=== PATIENT | male | born 1975 | race Caucasian/White ===

== ENCOUNTER 2024-06-15 16:33 | Emergency (ER) | payer MEDICAID, SELFPAY ==
[2024-06-15 16:36] VITALS: BMI 40.1
[2024-06-15 16:54] VITALS: BP 89/74; PULSE 118; RESP 18; TEMP 36.7; O2SAT 95
--- NOTE | 2024-06-15 17:01 | XR_ITS ---
Examination: CT abdomen and pelvis without contrast. Coronal 3-D reconstructions. Sagittal 2-D reconstructions. Date and time of exam:June 15, 2024 6:21 PM Comparison December 06, 2023 INDICATIONS: Abdominal pain nausea vomiting and diarrhea beginning 2 days ago CTDI: vol (mGy): 12.68 DLP: (mGycm): 861 Technique: Axial images of the abdomen have been obtained, 3 mm slice thickness Intravenous contrast material has not been administered. Low dose protocols were performed. One or more of the following dose reduction techniques were used; automated exposure control, adjustment of the mA and/or KV according to patient size, use of iterative reconstruction technique. Findings: Bibasilar pneumonia No focal liver or splenic lesions No pancreatic mass 10 mm left renal calculus, no hydronephrosis Aorta normal size Fluid distended colon Normal appendix No bowel obstruction No diverticulitis Normal seminal vesicles No prostatomegaly Contracted urinary bladder The osseous structures are intact IMPRESSION: Nonobstructing left renal calculus Fluid distended colon consistent with moderate colonic ileus and diffuse colitis Normal appendix
--- NOTE | 2024-06-15 17:02 | PD.EDRME ---
Rapid Medical Screening Exam [facility] Arrival date/time: 06/15/24 16:33 48-year-old male with a history of muscular dystrophy presents to the emergency room with a chief complaint of 8 out of 10 generalized abdominal pain, vomiting, diarrhea x 2 days I have greeted and performed a focused initial assessment of this patient. A comprehensive ED assessment and evaluation of the patient, analysis of all test results, and completion of the medical decision making process will be conducted by additional ED providers. Chief Complaint: Dizziness Vital signs: Vital Signs Temperature 98.1 F 06/15/24 16:54 Pulse Rate 118 H 06/15/24 16:54 Respiratory Rate 18 06/15/24 16:54 Blood Pressure 89/74 L 06/15/24 16:54 Pulse Oximetry (%) 95 06/15/24 16:54 Oxygen Delivery Method Room Air 06/15/24 16:54 Vital signs reviewed by provider: Yes
[2024-06-15 17:57] LABS: Basophils % (Auto) 0 % (0-2.5); Eosinophils % (Auto) 0 % (0-10); Hematocrit 57.3 % (41.0-53.0); Hemoglobin 17.8 g/dL (13.5-16.0); Immature Granulocytes % (Auto) 1 % (0-0); Immature Granulocytes Auto 0.06 Thou/mm3 (0.00-0.00); Lymphocytes # (Auto) 0.4 Thou/mm3 (1.0-4.8); Lymphocytes % (Auto) 5 % (10-50); Mean Corpuscular HGB Conc 31.1 g/dl (31.0-37.0); Mean Corpuscular Hemoglobin 27.6 pg (25.0-35.0); Mean Corpuscular Volume 89 fL (80-100); Monocytes # (Auto) 0.4 Thou/mm3 (0.0-0.8); Monocytes % (Auto) 5 % (0-12); Neutrophils # (Auto) 7.8 Thou/mm3 (1.8-7.7); Neutrophils % (Auto) 89 % (37-80); Nucleated Red Blood Cell % 0 /100 WBC (0); RDW Standard Deviation 51.6 fL (35.1-43.9); Red Blood Count 6.44 Miln/mm3 (4.50-5.90); White Blood Count 8.8 Thou/mm3 (3.8-10.6)
[2024-06-15] MEDS: ONDANSETRON ODT 4 MG TABRAP PO (17:58)
--- NOTE | 2024-06-15 18:16 | EDNOTE_ITS ---
Nausea/Vomit./Diarrhea-RME/HPI General Chief complaint: Dizziness Stated complaint: DIZZINESS, N/D/, AND GENERALIZED PAIN Time Seen by Provider: 06/15/24 18:15 Arrival date/time: 06/15/24 16:33 RME / HPI RME / HPI Narrative: 06/15/24 16:33 48-year-old male with a history of muscular dystrophy presents to the emergency room with a chief complaint of 8 out of 10 generalized abdominal pain, vomiting, diarrhea x 2 days I have greeted and performed a focused initial assessment of this patient. A comprehensive ED assessment and evaluation of the patient, analysis of all test results, and completion of the medical decision making process will be conducted by additional ED providers. Main ED Evaluation: Patient is a 48-year-old male with past medical history of muscular dystrophy who presented to the ED on 06/15/2024 due to generalized weakness, headache, mid- lower abdominal pain, vomiting, and diarrhea starting yesterday. Patient denies any fevers, chills. He denies eating anything out of the ordinary. Vomiting is described as mostly food contents, denies blood or bile, about 3-4 episodes yesterday. Vomiting has resolved today. Diarrhea is described as watery, nonbloody, last episode when the patient got to the ED. Abdominal pain is described as diffuse constant lower abdominal pain without any relieving or exacerbating factors rated about 5-6 out of 10. Patient states he takes no daily medications and does not follow with any specialists, just a PCP. MD complaint: nausea, vomiting, diarrhea and abdominal pain Onset (ago): day(s) Description of Vomiting: food contents Description of Diarrhea: water Associated Abdominal Pain: Yes Location of pain: diffuse, LLQ and RLQ Radiation: diffuse Severity: moderate Severity scale (1-10): 5 Quality: constant Consistency: constant Relieving factors: none Exacerbating factors: none Associated symptoms: nausea/vomiting and weakness Related Data Previous Rx's ?Medication ?Instructions ?Recorded tamsulosin 0.4 mg capsule 0.4 mg PO QDAY #30 caps 06/03 Allergies Allergy/AdvReac Type Severity Reaction Status Date / Time acetaminophen (From [place]) Allergy Severe Hives Verified 12/06/23 16:26 amoxicillin (From Augmentin) Allergy Severe Hives Verified 12/06/23 16:26 clavulanic acid (From Allergy Severe Hives Verified 12/06/23 16:26 Augmentin) hydrocodone (From [place]) Allergy Severe Hives Verified 12/06/23 16:26 codeine Allergy Hives Verified 06/15/24 16:36 Past Medical History Past Medical History Comments PMH COMMENT: Past Medical History: Muscular dystrophy (patient states he was never told what kind) Family History: Muscular dystrophy in mother and grandmother Surgical History: 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 Conversational and non-toxic appearing. Slight dysarthria secondary to underlying disorder. HEENT: Normocephalic, atraumatic, mucous membranes moist. Heart: Regular rate and rhythm, no murmurs. Lungs: Clear to auscultation with no wheezing or crackles. Abdomen: Soft, nondistended, mild tenderness to palpation lower abdomen RLQ and LLQ, positive bowel sounds. ?No guarding or rebound tenderness. Neurologic: Alert and oriented x3, no gross neurological deficit, and patient able to move all 4 extremities. Extremities: No edema. Skin: No rash or ecchymoses. Course Course Course Narrative: While in ED, the patient got Zofran 4 mg IV x1, ketorolac 30 mg IV x1, and 1L NS bolus. Initial BP soft at 89/74. 18:30 Evaluated patient at the bedside. Patient to CT scanner. 19:10 Updated patient on results so far, pending CT read. 19:40 CT read back showing diffuse colitis, updated patient. Will try PO. BP improved at 145/104. Quality Measures none Orders Category Date Time Status Insert IV NOW Care 06/15/24 17:[address] abdomen pelvis wo con Stat Exams 06/15/24 17:01 Completed CBC Stat Lab 06/15/24 17:39 Completed CMP [Comprehensive Metabolic Panel] Stat Lab 06/15/24 17:39 Completed Lipase Stat Lab 06/15/24 17:39 Completed Ketorolac Inj [Toradol Inj] Med 06/15/24 17:01 Discontinued 30 mg IVP X1 ONE Ondansetron Odt [Zofran Odt] Med 06/15/24 17:01 Discontinued 4 mg PO X1 ONE Sodium Chloride 0.9% 1000 ml [Ns] 1,000 ml Med 06/15/24 17:02 Discontinued IV 999 mls/hr Vital Signs Vital signs: Vital Signs Temperature 98.1 F 06/15/24 16:54 Pulse Rate 118 H 06/15/24 16:54 Respiratory Rate 18 06/15/24 16:54 Blood Pressure 89/74 L 06/15/24 16:54 Pulse Oximetry (%) 95 06/15/24 16:54 Oxygen Delivery Method Room Air 06/15/24 16:54 Nausea/Vomiting/Diarrhea Patient data External records reviewed:: [facility] previous records Clinical information provided by:: patient Social determinants that could affect healthcare access:: none Patient has the following chronic illnesses:: muscular dystrophy How is presenting disease/condition affected by chronic disease/condition?: uneffected by Evaluation data The following diagnostics were reviewed and interpreted by me:: lab results and radiology exam(s) Lab and/or radiology exams considered but not ordered:: None Interpretation Summary: CBC - Shows hemoconcentration that is consistent with dehydration. CMP - Shows mildly elevated total bilirubin at 1.8, otherwise normal. Lipase - Normal CT abd/pelv without con - No obvious abnormalities, according to my interpretation. There is a mild lower bilateral lower lung infiltrate. CT abdomen and pelvis without contrast. INDICATIONS: Abdominal pain nausea vomiting and diarrhea beginning 2 days ago Findings: Bibasilar pneumonia No focal liver or splenic lesions No pancreatic mass 10 mm left renal calculus, no hydronephrosis Aorta normal size Fluid distended colon Normal appendix No bowel obstruction No diverticulitis Normal seminal vesicles No prostatomegaly Contracted urinary bladder The osseous structures are intact IMPRESSION: Nonobstructing left renal calculus Fluid distended colon consistent with moderate colonic ileus and diffuse colitis Normal appendix Medications / Prescriptions Medications / Prescriptions considered but not ordered:: None Medication administrations:: Medication Administration History Discontinued Medications Sodium Chloride (Ns) 1,000 mls @ 999 mls/hr IV .Q1H1M ONE Stop: 06/15/24 18:02 Last Infusion: 06/15/24 19:20 Dose: Infused Documented By: Admin: 06/15/24 18:19 Dose: 999 mls/hr Documented By: LEVI Ketorolac Tromethamine (Ketorolac Inj 30 Mg/Ml Vial) 30 mg IVP X1 ONE Stop: 06/15/24 17:02 Last Admin: 06/15/24 18:19 Dose: 30 mg Documented By: LEVI Ondansetron HCl (Ondansetron Odt 4 Mg Tabrap) 4 mg PO X1 ONE; Protocol Stop: 06/15/24 17:02 Last Admin: 06/15/24 17:58 Dose: 4 mg Documented By: LEVI As above Consultations Consultation(s) initiated? (list below): No Diagnosis Nausea Differential Diagnosis: traveler's diarrhea, food poisoning, gastroenteritis and dehydration Most likely diagnosis given after review of the tests above:: Most likely viral gastroenteritis Admission Indicated Admission indicated?: not indicated Explain why admission is indicated or not indicated:: Patient can tolerate PO intake and vomiting, diarrhea has resolved. Admission Request Was there a request for admission?: No Disposition Plan Disposition Plan: Discharge Discharge Attestation Discharge Attestation: The patient and all family members were given an opportunity to ask questions and understood the discharge instructions. Discharge instructions specifically effects, indications for sooner follow up or return to the emergency department, and the expected course of current diagnosis. Patient condition: Stable Discharge Plan Plan Patient Disposition: HOME (Self Care) Patient condition on transfer: Stable Prescriptions/Referrals Prescriptions/Med Rec: No Action tamsulosin 0.4 mg Capsule 0.4 mg PO QDAY Qty: 30 0RF Referrals: No Primary/Family,Physician [Primary Care Provider] - In 1 week Problem List Clinical Impression: Colitis, Dehydration Patient/Caregiver Discharge Instructions Discharge Activity: activity as tolerated Education Materials: Anatomy of the Digestive System, How the Colon Works, Understanding Colitis Additional Instructions: If you have mild to moderate diarrhea, you can usually be treated at home by drinking extra fluids. The fluids should contain water, salt, and sugar. Oral rehydration solution (ORS), a specific mixture of glucose and sodium, is the best first-line treatment and is available in [id number] commercial preparations. Boiled starches and cereals (eg, potatoes, noodles, rice, wheat, and oats) with salt are recommended if you have watery diarrhea; crackers, bananas, soup, and boiled vegetables may also be eaten. Your condition should resolve without needing any additional medicines. Follow up with your primary doctor. If you have continued diarrhea that does not improve, fever, or bloody stool, return to the ED. Print Language: Qatari Stand Alone Forms: Penny Award Info., Patient Portal Info Letter
[2024-06-15] MEDS: KETOROLAC INJ 30 MG/ML VIAL IVP (18:19)
[2024-06-15] MEDS: SODIUM CHLORIDE 0.9% 1000 ML 1,000 ML 999 ML IV (18:19)
[2024-06-15 18:25] LABS: Alanine Aminotransferase 30 U/L (10-49); Albumin, Serum 4.7 gm/dL (3.5-5.0); Albumin/Globulin Ratio 1.8 (1.2-2.2); Alkaline Phosphatase 147 U/L (46-116); Anion Gap 10 (7-16); Aspartate Amino Transferase 31 U/L (0-34); BUN/Creatinine Ratio 18 Ratio (12-20); Bilirubin,Total 1.8 mg/dL (0.3-1.2); Blood Urea Nitrogen 14 mg/dL (9-23); Calcium 9.2 mg/dL (8.3-10.6); Calcium (Corrected) 9.2 mg/dL (8.5-10.1); Carbon Dioxide 26.3 mMol/L (20.0-31.0); Chloride 108 mMol/L (98-107); Creatinine (Component) 0.8 mg/dL (0.6-1.3); Estimated Creatinine Clearance 154.4 mL/min (>60); Globulin 2.6 gm/dL (2.3-3.5); Glucose 85 mg/dL (74-106); Lipase 23 U/L (12-53); Osmolality,Calculated 286 (275-295); Potassium 4.2 mMol/L (3.4-5.1); Sodium 144 mMol/L (136-145); Total Protein 7.3 gm/dL (5.7-8.2); eGFR > 60 See Note
[2024-06-15 19:25] VITALS: BP 145/104; PULSE 76; RESP 18; TEMP 37.1; O2SAT 98
[2024-06-15 20:45] VITALS: BP 112/84; PULSE 92; RESP 18; TEMP 36.6; O2SAT 96
[2024-06-15 20:55] VITALS: BP 112/84; PULSE 92; RESP 18; TEMP 36.6; O2SAT 96
[2024-06-16 15:32] LABS: Platelet Count 109 Thou/mm3 (140-440)
== END 2024-06-15 20:55 | disposition home or self-care (01) ==
PROVIDERS: Nurse Practitioner Family; Emergency Provider Student in an Organized Health Care Education/Training Program
DX: K52.9 Noninfective gastroenteritis and colitis, unspecified (principal); E86.0 Dehydration; N20.0 Calculus of kidney; K63.89 Other specified diseases of intestine; Z87.891 Personal history of nicotine dependence
CPT/HCPCS: 36415; 74176; 80053; 81001; 83690; 85025; 87086; 96361; 96374; 99284; J1885; J7030; Q0162